=== PATIENT | female | born 1955 | race Caucasian/White ===

== ENCOUNTER → 2022-08-25 | Outpatient (CLI) | payer BC, SELFPAY ==
--- NOTE | 2022-08-25 | IMM_PTH ---
PATIENT: BRYAN MCMANUS LOC: [facility] U#:[id number] AGE/SX: 67/F ROOM: RE08/25/[address]: MELISSA Vasquez : 1955 BED: DIS: 08/25/2022 SPEC #: [id number] RECD: 08/27/22 13:29 STATUS: AYAZ REHaim #: [id number] BLU: 08/25/22 00:[address]: Julienne Stroud NP DEPT: IMMUNOHISTOCHEMISTRY RECD BY: Maggi Daniel Tissues: Endometrium, NOS Procedures: MSH2 (add) MLH-1 (add) MSH6 (add) Anti-PMS2 (add) HER2 GREGORY (add) P53 (add) KI-67 (initial) PHYSICIAN & INSTITUTION [place] [id number] SPECIMEN INFORMATION: Tissue Source: Endometrial tissue Clinical Info: Postmenopausal bleeding Specimen Number: [id number] #5 CPT code: 34496, 16708 x6 METHODOLOGY: Deparaffinized sections of prefer/formalin-fixed tissue or PAP/DQ stained slides are incubated with monoclonal/polyclonal antibodies/oligonucleotide probes. Localization is made via biotin free immunoperoxidase method. Appropriate controls are performed and reacted as expected. Results on target cell population are indicated in the following table: RESULTS: ANTIBODY / CLONE RESULT Her-2neu (CB11) negative (0) MLH-1 (M1) positive MSH2 (25D12) positive MSH6 (44) positive PMS2 (TOC4810) positive Ki-67 (30-9) positive, moderate P53 (DO-7) positive, weak (wild type) These tests were developed and their performance characteristics determined by [facility]. They may not have been cleared or approved by the [place]. Food and Drug Administration. The FDA has determined that such clearance or approval is not necessary. The above immunohistochemical/dualISH markers are ordered and reviewed by the Pathologist. INTERPRETATION: Endometrial biopsy: Endometrial adenocarcinoma, endometrioid type. Result of Microsatellite Instability Study: Negative (no loss of mismatch protein; no microsatellite instability detected). AB:lesly 08/28/2022
--- NOTE | 2022-08-25 13:30 | EMB_PTH ---
PATIENT: BRYAN MCMANUS LOC: [facility] U#:[id number] AGE/SX: 67/F ROOM: RE08/25/[address]: MELISSA Vasquez : 1955 BED: DIS: 08/25/2022 SPEC #: [id number] RECD: 08/25/22 14:53 STATUS: AYAZ REHaim #: [id number] BLU: 08/25/22 13:[address]: Julienne Stroud NP DEPT: SURGICAL PATHOLOGY RECD BY: Brittani Chinchilla Tissues: Endometrium, NOS Procedures: Surgery Specimen Level IV HEADER OPERATION: Endometrial biopsy PRE-OP DIAGNOSIS: Postmenopausal bleeding TISSUE SUBMITTED: Endometrial tissue MICROSCOPIC DIAGNOSIS Endometrial biopsy: Well differentiated endometrial adenocarcinoma, endometroid type, FIGO grade I. See comment. AB:lesly 08/27/2022 COMMENT Immunohistochemistry ([id number]) for microsatellite instability (mismatch repair of protein) will be performed and the results will be reported separately. MICROSCOPIC DESCRIPTION Slides are reviewed. GROSS DESCRIPTION Received is one container labeled with the patient's name and not further designated. The specimen consists of multiple irregular fragments of pink-ruggiero soft tissue that in aggregate measure 8.0 x 5.0 x 0.3 cm. The specimen is totally submitted in five cassettes. / AM:lesly 08/26/2022 TC:0 [facility]: [id number]
== END | disposition home or self-care (01) ==
LOC: LABSPEC 15:01
PROVIDERS: Referring Provider Nurse Practitioner Women's Health; Visit Provider Nurse Practitioner Women's Health
DX: N95.0 Postmenopausal bleeding (principal)
CPT/HCPCS: 88305; 88341; 88342